=== PATIENT | male | born 1960 | race Two or more races ===

== ENCOUNTER 2024-07-27 13:31 | Emergency (ER) | payer SELFPAY ==
[2024-07-27] MEDS ORDERED: NA CHLORIDE 0.9% 2,000 ML ONE (13:46)
[2024-07-27 14:05] LABS: Absolute Basophils 0.1 K/uL (0-0.5); Absolute Eosinophils 0.8 K/uL (0-0.5); Absolute Lymphocytes (CBC) 2.1 K/uL (0.7-4.9); Absolute Monocytes 0.5 K/uL (0.1-1.3); Absolute Neutrophil 5.5 K/uL (1.8-8.0); Basophils % 0.7 % (0-1.3); Eosinophils % 8.7 % (0-4.4); Hematocrit 45.4 % (39.6-49.0); Hemoglobin 15.4 g/dL (13.6-17.9); Lymphocytes % 23.9 % (15.3-44.8); MCH 31.6 pg (27.0-35.0); MCHC 33.8 g/dL (32.0-36.0); MCV 93.5 fL (80-100); Monocytes % 5.3 % (3.3-12.3); Neutrophils % 61.4 % (41.7-73.7); Platelets 226 thou/uL (152-406); RBC Red Blood Cell Count 4.85 M/uL (4.33-5.43); Red Cell Distribution Width 13.2 % (12.1-15.2)
[2024-07-27 14:06] LABS: PT Prothrombin Time 11.4 SECONDS (9.4-12.5); Protime INR 1.02
--- NOTE | 2024-07-27 14:23 | RAD REPORT ---
Procedure: Chest Single View HISTORY: Cough COMPARISON: none FINDINGS: The lungs appear clear of acute infiltrate. No significant pleural effusion noted. The heart is normal size. IMPRESSION: No acute abnormality is displayed.
[2024-07-27 14:26] LABS: ALT/SGPT 22 U/L (16-61); Albumin 3.1 g/dL (3.4-5.0); Albumin/Globulin Ratio 0.8 (1.1-1.8); Alkaline Phosphatase 93 U/L (45-117); BUN Blood Urea Nitrogen 16 mg/dL (7-18); Bicarbonate 26 mEq/L (21-32); Bilirubin Total 0.4 mg/dL (0.2-1.0); Globulin 3.9 g/dL (2.3-3.5); Glomerular Filtration Rate 79 ml/min (=/>90); Glucose Level 364 mg/dL (74-106); Lipase 67 U/L (13-75); Magnesium 2.2 mg/dL (1.6-2.4); NT PRO-BNP 37 pg/mL (<125); Sodium Level 135 mEq/L (136-145)
[2024-07-27 14:30] LABS: AST/SGOT < 10 U/L (15-37); Bilirubin Direct < 0.2 mg/dL (0-0.2); Bilirubin Indirect, Calculated 0.2 mg/dL (0.2-0.8); Troponin High Sensitivity < 3.0 pg/mL (<58.9)
[2024-07-27] MEDS ORDERED: INSULIN REGULAR (HUMAN) 100 UNIT/ML ONE (16:16)
--- NOTE | 2024-07-27 16:37 | EDPHYS ---
Physician Documentation [facility] Name: Pavan Osullivan Age: 64 yrs Sex: Male : 1960 Arrival Date: 07/27/2024 Time: 13:31 Bed 15 Private MD: ED Physician Ángel Meredith HPI: 07/27 16:32 This 64 yrs old Other Male presents to ER via EMS with complaints of High Blood Sugar. christal 16:32 The patient or guardian reports hyperglycemia, that was potentially precipitated by no christal particular event. Onset: The symptoms/episode began/occurred this morning, today. Associated signs and symptoms: Pertinent positives: polydipsia. Current symptoms: In the emergency department the patient's symptoms are unchanged from the initial presentation, despite home interventions. The patient has experienced similar episodes in the past, several times. Historical: - Allergies: 13:37 No Known Allergies; rs5 - PMHx: 13:37 Depressive disorder; Anxiety; drug use; enlarged prostaste; rs5 13:38 Diabetes mellitus; rs5 - PSHx: 13:37 None; rs5 - Immunization history:: Adult Immunizations unknown. - Infectious Disease History:: Denies. - Social history:: Smoking status: Patient reports the use of cigarette tobacco products, smokes one-half pack cigarettes per day. ROS: 16:33 Constitutional: Negative for fever, chills, and weight loss, Eyes: Negative for injury, christal pain, redness, and discharge, ENT: Negative for injury, pain, and discharge, Neck: Negative for injury, pain, and swelling, Cardiovascular: Negative for chest pain, palpitations, and edema, Respiratory: Negative for shortness of breath, cough, wheezing, and pleuritic chest pain, Abdomen/GI: Negative for abdominal pain, nausea, vomiting, diarrhea, and constipation, Back: Negative for injury and pain, : Negative for injury, bleeding, discharge, and swelling, MS/Extremity: Negative for injury and deformity, Skin: Negative for injury, rash, and discoloration, Psych: Negative for depression, anxiety, suicide ideation, homicidal ideation, and hallucinations, Allergy/Immunology: Negative for hives, rash, and allergies, Hematologic/Lymphatic: Negative for swollen nodes, abnormal bleeding, and unusual bruising, 16:33 Neuro: Positive for dizziness, near syncope, weakness, Exam: 16:33 Constitutional: This is a well developed, well nourished patient who is awake, alert, christal and in no acute distress. Head/Face: Normocephalic, atraumatic. Eyes: Pupils equal round and reactive to light, extra-ocular motions intact. Lids and lashes normal. Conjunctiva and sclera are non-icteric and not injected. Cornea within normal limits. Periorbital areas with no swelling, redness, or edema. ENT: Nares patent. No nasal discharge, no septal abnormalities noted. Tympanic membranes are normal and external auditory canals are clear. Oropharynx with no redness, swelling, or masses, exudates, or evidence of obstruction, uvula midline. Mucous membranes moist. Neck: Trachea midline, no thyromegaly or masses palpated, and no cervical lymphadenopathy. Supple, full range of motion without nuchal rigidity, or vertebral point tenderness. No Meningismus. Chest/axilla: Normal chest wall appearance and motion. Nontender with no deformity. No lesions are appreciated. Cardiovascular: Regular rate and rhythm with a normal S1 and S2. No gallops, murmurs, or rubs. Normal PMI, no JVD. No pulse deficits. Respiratory: Lungs have equal breath sounds bilaterally, clear to auscultation and percussion. No rales, rhonchi or wheezes noted. No increased work of breathing, no retractions or nasal flaring. Abdomen/GI: Soft, non-tender, with normal bowel sounds. No distension or tympany. No guarding or rebound. No evidence of tenderness throughout. Back: No spinal tenderness. No costovertebral tenderness. Full range of motion. Male : Normal genitalia with no discharge or lesions. Skin: Warm, dry with normal turgor. Normal color with no rashes, no lesions, and no evidence of cellulitis. MS/ Extremity: Pulses equal, no cyanosis. Neurovascular intact. Full, normal range of motion. Psych: Awake, alert, with orientation to person, place and time. Behavior, mood, and affect are within normal limits. 16:33 ECG was reviewed by the Attending Physician. 16:33 Neuro: Orientation: is normal, appropriate for stated age, no acute changes, Mentation: is normal, appropriate for stated age, no acute changes, Memory: is normal, appropriate for stated age, no acute changes, Cranial nerves: grossly normal, is grossly normal based on the patient's age, Sensation: is normal, no obvious gross deficits, appropriate Gait: not applicable Vital Signs: 13:35 BP 124 / 83; Pulse 89; Resp 17; Temp 98(O); Pulse Ox 97% on R/A; rs5 15:36 BP 133 / 80; Pulse 70; Resp 17; Pulse Ox 96% on R/A; rs5 16:34 BP 137 / 74; Pulse 74; Resp 17; Pulse Ox 99% on R/A; rs5 NIH Stroke Scale Scores: 16:33 NIHSS Score: 0 christal Rober Coma Score: 16:33 Eye Response: spontaneous(4). Motor Response: obeys commands(6). Verbal Response: christal oriented(5). Total: 15. MDM: 13:36 Medical Screening Exam initiated [facility] 07/27 13:37 Order name: Basic Metabolic Panel; Complete Time: 15:47 [facility] 07/27 13:37 Order name: CBC with Diff; Complete Time: 15:47 [facility] 07/27 13:37 Order name: LFT's; Complete Time: 15:47 [facility] 07/27 13:37 Order name: Magnesium; Complete Time: 15:47 [facility] 07/27 13:37 Order name: NT PRO-BNP; Complete Time: 15:47 [facility] 07/27 13:37 Order name: PT-INR; Complete Time: 15:47 [facility] 07/27 13:37 Order name: Troponin HS; Complete Time: 15:47 [facility] 07/27 13:37 Order name: Lipase; Complete Time: 15:47 [facility] 07/27 14:07 Order name: Glucose, Ancillary Testing; Complete Time: 15:47 [facility] 07/27 16:17 Order name: Glucose, Ancillary Testing; Complete Time: 16:35 [facility] 07/27 13:37 Order name: XRAY Chest (1 view); Complete Time: 15:47 [facility] 07/27 13:37 Order name: EKG; Complete Time: 13:38 [facility] 07/27 13:37 Order name: Cardiac monitoring; Complete Time: 14:03 [facility] 07/27 13:37 Order name: EKG - Nurse/Tech; Complete Time: 14:03 [facility] 07/27 13:37 Order name: IV Saline Lock; Complete Time: 14:03 [facility] 07/27 13:37 Order name: Labs collected and sent; Complete Time: 14:03 [facility] 07/27 13:37 Order name: O2 Per Protocol; Complete Time: 14:03 [facility] 07/27 13:37 Order name: O2 Sat Monitoring; Complete Time: 14:03 [facility] EC:33 Rate is 83 beats/min. Rhythm is regular. QRS [place] is Normal. [place] interval is normal. QRS christal interval is normal. QT interval is normal. No Q waves. T waves are Normal. No ST changes noted. Clinical impression: Normal ECG and No evidence of ischemia. Interpreted by me. Reviewed by me. Administered Medications: 13:40 Drug: NS 0.9% IV 2000 ml IV at 1000 ml once; to be given as a bolus over 60 minutes rs5 Route: IV; Rate: 1000 ml; Site: right antecubital; 16:10 Follow up: Response: No adverse reaction; IV Status: Completed infusion; IV Intake: rs5 2000ml 15:50 Drug: Insulin Regular Human IVP 5 units IVP once {Co-Signature: bp ([place] rs5 RN).} Route: IVP; Site: right antecubital; 16:10 Follow up: Response: No adverse reaction rs5 16:39 Not Given (Physician Discretion): insulin regular human10 units IVP once rs5 16:39 Not Given (Physician Discretion): insulin [id number] units Sub-Q once rs5 Disposition Summary: 07/27/24 16:36 Discharge Ordered Notes: Location: Home christal Problem: new christal Symptoms: have improved christal Condition: Stable christal Diagnosis - Type 2 diabetes mellitus with hyperglycemia christal - Abuse of other non-psychoactive substances christal Followup: christal - With: Private Physician - When: 2 - 3 days - Reason: Recheck today's complaints, Continuance of care, Re-evaluation by your physician Followup: christal - With: Rashad Lyon MD - When: 2 - 3 days - Reason: Recheck today's complaints, Re-evaluation by your physician Discharge Instructions: - Discharge Summary Sheet christal - Finding Treatment for Addiction christal - Type 2 Diabetes Mellitus, Diagnosis, Adult christal - Hyperglycemia christal - Supporting Someone With an Addiction christal - Blood Glucose Monitoring, Adult christal - Diabetes Mellitus and Nutrition, Adult christal Forms: - Medication Reconciliation Form christal - Antibiotic Education christal - Prescription Opioid Use christal - Patient Portal Instructions christal - Leadership Thank You Letter christal NIH Stroke Scale - NIH Stroke Score Date: 07/27/2024 Time: 16:33 Total Score = 0 10. Dysarthria (speech clarity - read or repeat words) - 0(Normal) 11. Extinction and Inattention (visual/tactile/auditory/spatial/personal) - 0(No abnormality) 1a. Level of Consciousness (LOC) - 0(Alert) 1b. Level of Consciousness (LOC) (Month \T\ Age) - 0(Both) 1c. LOC Commands (Open \T\ Closes Eyes/Applications Systems Engineer) - 0(Both) 2. Best Gaze (Lateral Gaze Paresis) - 0(Normal) 3. Visual Field Loss - 0(No visual loss) 4. Facial Palsy - 0(Normal) 5a. Left Arm: Motor (10-second hold) - 0(No drift) 5b. Right Arm: Motor (10-second hold) - 0(No drift) 6a. Left Leg: Motor (5-second hold - always test supine) - 0(No drift) 6b. Right Leg: Motor (5-second hold - always test supine) - 0(No drift) 7. Limb Ataxia (finger/nose \T\ heel/vides - test with eyes open) - 0(Absent) 8. Sensory Loss (pinprick arms/legs/face) - 0(Normal) 9. Best Language: Aphasia (description/naming/reading) - 0(No aphasia) Initials: christal Signatures: Dispatcher [employer] EDMS Ángel Meredith MD MD cha Sotelo, Ricky, RN RN rs5 [place] RN bp Corrections: (The following items were deleted from the chart) 13:38 13:38 BASIC METABOLIC PANEL+C.LAB.BRZ ordered. EDMS EDMS 13:38 13:38 CBC+H.LAB.BRZ ordered. EDMS EDMS 13:38 13:38 HEPATIC FUNCTION+C.LAB.BRZ ordered. EDMS EDMS 13:38 13:38 MAGNESIUM+C.LAB.BRZ ordered. EDMS EDMS 13:38 13:38 PROBNP+C.LAB.BRZ ordered. EDMS EDMS 13:38 13:38 PROTIME (+INR)+COAG.LAB.BRZ ordered. EDMS EDMS 13:38 13:38 Troponin High Sensitivity+C.LAB.BRZ ordered. EDMS EDMS 13:38 13:38 Urinalysis+U.LAB.BRZ ordered. EDMS EDMS 38 13:38 LIPASE+C.LAB.BRZ ordered. EDMS EDMS
--- NOTE | 2024-07-27 16:37 | ER ---
Nurse's Notes [facility] Name: Pavan Osullivan Age: 64 yrs Sex: Male : 1960 Arrival Date: 07/27/2024 Time: 13:31 Bed 15 Private MD: Diagnosis: Type 2 diabetes mellitus with hyperglycemia;Abuse of other non-psychoactive substances Presentation: 07/27 13:35 Chief complaint: EMS states: Pt toned out EMS for generalized weakness and fatigue, rs5 blood sugar readings in 300's on arrival. Coronavirus screen: At this time, the client does not indicate any symptoms associated with coronavirus-19. Ebola Screen: No symptoms or risks identified at this time. Initial Sepsis Screen: Does the patient meet any 2 criteria? No. Patient's initial sepsis screen is negative. Does the patient have a suspected source of infection? No. Patient's initial sepsis screen is negative. Risk Assessment: Do you want to hurt yourself or someone else? Patient reports no desire to harm self or others. Onset of symptoms was July 27, 2024. 13:35 Method Of Arrival: EMS: [facility] rs5 13:35 Acuity: MIKAYLA 3 rs5 Historical: - Allergies: 13:37 No Known Allergies; rs5 - PMHx: 13:37 Depressive disorder; Anxiety; drug use; enlarged prostaste; rs5 13:38 Diabetes mellitus; rs5 - PSHx: 13:37 None; rs5 - Immunization history:: Adult Immunizations unknown. - Infectious Disease History:: Denies. - Social history:: Smoking status: Patient reports the use of cigarette tobacco products, smokes one-half pack cigarettes per day. Screenin:34 [facility] ED Fall Risk Assessment (Adult) History of falling in the last 3 months, rs5 including since admission No falls in past 3 months (0 pts) Confusion or Disorientation No (0 pts) Intoxicated or Sedated No (0 pts) Impaired Gait Yes (1 pt) Mobility Assist Device Used No (0 pt) Altered Elimination No (0 pt) Score/Fall Risk Level 0 - 2 = Low Risk Oriented to surroundings, Maintained a safe environment. Abuse screen: Denies threats or abuse. Nutritional screening: No deficits noted. Tuberculosis screening: No symptoms or risk factors identified. Assessment: 13:35 General: Appears in no apparent distress. uncomfortable, Behavior is calm, cooperative, rs5 pt reports generalized weakness . 13:35 Pain: Denies pain. Neuro: Level of Consciousness is awake, alert, obeys commands, rs5 Oriented to person, place, time, situation. Cardiovascular: Patient's skin is warm and dry. Respiratory: Airway is patent Respiratory effort is even, unlabored, Respiratory pattern is regular, symmetrical. GI: Abdomen is round non-distended, Abd is soft and non tender X 4 quads. : No signs and/or symptoms were reported regarding the genitourinary system. EENT: No signs and/or symptoms were reported regarding the EENT system. Derm: Skin is dry, Skin is pink, warm \T\ dry. normal. Musculoskeletal: Range of motion: intact in all extremities. 14:42 Reassessment: Patient and/or family updated on plan of care and expected duration. Pain rs5 level reassessed. Patient is alert, oriented x 3, equal unlabored respirations, skin warm/dry/pink. 15:35 Reassessment: Patient and/or family updated on plan of care and expected duration. Pain rs5 level reassessed. Patient is alert, oriented x 3, equal unlabored respirations, skin warm/dry/pink. 16:07 Reassessment: Patient and/or family updated on plan of care and expected duration. Pain rs5 level reassessed. Patient is alert, oriented x 3, equal unlabored respirations, skin warm/dry/pink. to bedside for blood sugar check, blood sugar results 230, provider notified . 16:47 Reassessment: to bedside for blood sugar check, pt refused blood sugar check. . rs5 Vital Signs: 13:35 BP 124 / 83; Pulse 89; Resp 17; Temp 98(O); Pulse Ox 97% on R/A; rs5 15:36 BP 133 / 80; Pulse 70; Resp 17; Pulse Ox 96% on R/A; rs5 16:34 BP 137 / 74; Pulse 74; Resp 17; Pulse Ox 99% on R/A; rs5 [place] Coma Score: 16:33 Eye Response: spontaneous(4). Motor Response: obeys commands(6). Verbal Response: christal oriented(5). Total: 15. NIH Stroke Scale Scores: 16:33 NIHSS Score: 0 christal ED Course: 13:34 Patient arrived in ED. rs5 13:34 Patient has correct armband on for positive identification. Placed in gown. Bed in low rs5 position. Call light in reach. Side rails up X2. 13:34 No provider procedures requiring assistance completed. rs5 13:36 Ángel Meredith MD is Attending Physician. [facility] 13:37 Triage completed. rs5 13:39 Chaz Salvador, RN is Primary Nurse. rs5 13:40 Inserted saline lock: 20 gauge in right antecubital area, using aseptic technique. rs5 Blood collected. Flushed with 10 mL NS. 14:21 XRAY Chest (1 view) In Process Unspecified. EDMS 16:35 Rashad Lyon MD is Referral Physician. christal 16:55 IV discontinued, intact, bleeding controlled, No redness/swelling at site. Pressure rs5 dressing applied. Administered Medications: 13:40 Drug: NS 0.9% IV 2000 ml IV at 1000 ml once; to be given as a bolus over 60 minutes rs5 Route: IV; Rate: 1000 ml; Site: right antecubital; 16:10 Follow up: Response: No adverse reaction; IV Status: Completed infusion; IV Intake: rs5 2000ml 15:50 Drug: Insulin Regular Human IVP 5 units IVP once {Co-Signature: bp ([place] rs5 RN).} Route: IVP; Site: right antecubital; 16:10 Follow up: Response: No adverse reaction rs5 16:39 Not Given (Physician Discretion): insulin regular human10 units IVP once rs5 16:39 Not Given (Physician Discretion): insulin [id number] units Sub-Q once rs5 Medication: 15:36 VIS not applicable for this client. rs5 Intake: 16:10 IV: 2000ml; Total: 2000ml. rs5 Outcome: 16:36 Discharge ordered by . christal 16:55 Discharged to home ambulatory, rs5 16:55 Condition: stable rs5 16:55 Discharge instructions given to patient, family, Instructed on discharge instructions, follow up and referral plans. Demonstrated understanding of instructions, follow-up care, 16:59 Patient left the ED. rs5 NIH Stroke Scale - NIH Stroke Score Date: 07/27/2024 Time: 16:33 Total Score = 0 10. Dysarthria (speech clarity - read or repeat words) - 0(Normal) 11. Extinction and Inattention (visual/tactile/auditory/spatial/personal) - 0(No abnormality) 1a. Level of Consciousness (LOC) - 0(Alert) 1b. Level of Consciousness (LOC) (Month \T\ Age) - 0(Both) 1c. LOC Commands (Open \T\ Closes Eyes/Electronic Imager) - 0(Both) 2. Best Gaze (Lateral Gaze Paresis) - 0(Normal) 3. Visual Field Loss - 0(No visual loss) 4. Facial Palsy - 0(Normal) 5a. Left Arm: Motor (10-second hold) - 0(No drift) 5b. Right Arm: Motor (10-second hold) - 0(No drift) 6a. Left Leg: Motor (5-second hold - always test supine) - 0(No drift) 6b. Right Leg: Motor (5-second hold - always test supine) - 0(No drift) 7. Limb Ataxia (finger/nose \T\ heel/vides - test with eyes open) - 0(Absent) 8. Sensory Loss (pinprick arms/legs/face) - 0(Normal) 9. Best Language: Aphasia (description/naming/reading) - 0(No aphasia) Initials: christal Signatures: Dispatcher [employer] Ángel Ibanez MD MD cha Sotelo, Ricky, RN RN rs5 [place] RN bp
[2024-07-27 19:06] VITALS: TEMP 98
[2024-07-27 19:12] VITALS: BP 133/80; O2SAT 96
--- NOTE | 2024-07-31 14:19 | EKG ---
Test Date: 2024-07-27 Test Time: 14:05:36 Environmental Compliance Inspector: AM MEASUREMENT RESULTS: Intervals: Rate: 82 MO: 140 QRSD: 82 QT: 378 QTc: 441 [place]: P: 57 MO: 140 QRS: -18 T: 136 INTERPRETIVE STATEMENTS: Normal sinus rhythm Normal ECG No previous ECG available for comparison Electronically Signed On 07-31-24 14:15:27 COLLECTION SUPERVISOR by Sonu Brown
--- NOTE | 2024-08-01 10:23 | EKG ---
Test Date: 2024-07-27 Test Time: 14:06:46 Client Relations Associate: AM MEASUREMENT RESULTS: Intervals: Rate: 83 WA: 144 QRSD: 78 QT: 388 QTc: 455 [place]: P: 99 [place]: 144 QRS: -16 T: 123 INTERPRETIVE STATEMENTS: Normal sinus rhythm Normal ECG Compared to ECG 07/27/2024 14:05:36 No significant changes Electronically Signed On 08-01-24 10:22:20 CORE MACHINE OPERATOR by Yadiel Brar
== END 2024-07-27 16:59 | disposition home or self-care (01) ==
LOC: ER 13:31
DX: E11.65 Type 2 diabetes mellitus with hyperglycemia (principal); F55.8 Abuse of other non-psychoactive substances
CPT/HCPCS: 36415; 71045; 80048; 80076; 82947; 83690; 83735; 83880; 84484; 85025; 85610; 93005; 96361; 96374; 99284; J7030